=== PATIENT | female | born 1990 | race Hispanic/Latino ===

== ENCOUNTER 2017-12-22 01:14 | Inpatient (IN) | payer OTHER ==
[~2017-12-22] VITALS: Ht 152.4 cm; Wt 72.7 kg
[2017-12-22] VITALS (8 sets, daily range): BP systolic 90–104; BP diastolic 58–65
[2017-12-22 02:09] LABS: HEMATOCRIT 40.8 % (36.0-46.0); MCH 30.8 PG (29.0-34.0); MCHC 34.3 G/DL (30.0-36.0); MCV 89.9 FL (83-99); PLATELET COUNT 220 K/uL (156-360); RBC DIS.WIDTH-CV 12.5 % (11.8-14.6); RBC DIS.WIDTH-SD 41.1 % (39-53); RED BLOOD COUNT 4.54 M/uL (3.80-5.20); WHITE BLOOD COUNT 12.9 K/uL (4.1-10.2)
[2017-12-22 02:23] LABS: CHLORIDE 109 mEq/L (99-109); POTASSIUM 3.8 mEq/L (3.7-5.4); SODIUM 140 mEq/L (136-147)
[2017-12-22 02:25] LABS: GLUCOSE 156 mg/dL (70-99)
[2017-12-22 02:29] LABS: CREATININE 0.7 mg/dL (0.6-1.3); GFR ESTIMATE (CALCULATED) > 59 mL/min/
[2017-12-22 02:30] LABS: UREA NITROGEN (BUN) 10 mg/dL (9-23)
[2017-12-23 00:09] VITALS: BP 98/51
[2017-12-23 03:39] VITALS: BP 95/60
[2017-12-23 06:38] LABS: BASOPHIL (%) 0.1 % (0-1); EOSINOPHIL (%) 0 % (0-5); HEMATOCRIT 32.8 % (36.0-46.0); IMMATURE GRANULOCYTE (%) 0.6 % (0.0-0.7); LYMPHOCYTE COUNT 1.4 K/uL (1.0-2.8); MCH 30.5 PG (29.0-34.0); MCHC 33.8 G/DL (30.0-36.0); MCV 90.1 FL (83-99); MONOCYTE (%) 4.3 % (3-12); MONOCYTE COUNT 0.4 K/uL (0-0.8); NEUTROPHIL COUNT 7.5 K/uL (1.8-6.4); PLATELET COUNT 192 K/uL (156-360); RBC DIS.WIDTH-CV 12.7 % (11.8-14.6); RED BLOOD COUNT 3.64 M/uL (3.80-5.20); WHITE BLOOD COUNT 9.3 K/uL (4.1-10.2)
[2017-12-23 06:50] LABS: HEMOGLOBIN 11.1 G/DL (11.9-15.5)
[2017-12-23 07:01] LABS: CHLORIDE 109 MEQ/L (99-109); CREATININE 0.5 MG/DL (0.6-1.3); GFR ESTIMATE (CALCULATED) > 59 mL/min/; GLUCOSE 145 mg/dL (70-99); POTASSIUM 3.8 MEQ/L (3.7-5.4); SODIUM 142 MEQ/L (136-147); UREA NITROGEN (BUN) 10 mg/dL (9-23)
[2017-12-23 07:52] VITALS: BP 99/60
[2017-12-23 11:20] VITALS: BP 97/66
[2017-12-23] MEDS ORDERED: AMOXICILLIN500 M1 PO (15:02)
[2017-12-23] MEDS ORDERED: IBUPROFEN200 M1 PO (15:03)
[2017-12-23 16:37] VITALS: BP 116/69
[2017-12-23 23:51] VITALS: BP 102/65
[2017-12-24 07:00] VITALS: BP 107/72
[2017-12-24] MEDS ORDERED: AUGMENTIN875 MG PO (07:52)
[2017-12-24] MEDS ORDERED: MEDROL DOSEPAK4 MG PO (07:53)
== END 2017-12-24 11:31 | disposition home or self-care (01) | DRG 134 ==
LOC: EME → EDBD 01:14 → EDOF 02:47 → 2EAST 02:47 → ENRESERV 02:48 → 2EAST 05:29
PROVIDERS: Emergency Medicine Emergency Medical Services; Hospitalist; Student in an Organized Health Care Education/Training Program
PROC: 0C9PXZZ Drainage of Tonsils, External Approach (ICD-10-PCS; principal; 2017-12-22)
DX: J36 Peritonsillar abscess (principal); I95.9 Hypotension, unspecified; Z98.818 Other dental procedure status
CPT/HCPCS: 80048; 80202; 82948; 83605; 85025; 85027; 87040; 87070; 87075; 87076; 87205; 99281; 99285; J0295; J1100; J1650; J1885; J2543; J3010; J3370; J7030; J7040; J7050; J7512; S0028